=== PATIENT | female | born 1965 | race Two or more races ===

== ENCOUNTER 2024-04-12 19:28 | Emergency (ER) | payer SELFPAY ==
[~2024-04-12] VITALS: Ht 162.6 cm; Wt 70.0 kg
[2024-04-12 20:04] VITALS: BP 104/70; PULSE 114; RESP 20; O2SAT 95
== END 2024-04-12 20:23 | disposition left against medical advice (07) ==
LOC: ER 19:28
DX: R51.9 Headache, unspecified (principal); R05.9 Cough, unspecified; R10.31 Right lower quadrant pain; Z53.21 Procedure and treatment not carried out due to patient leaving prior to being seen by health care provider